=== PATIENT | male | born 1950 | race Caucasian/White ===

== ENCOUNTER 2018-06-21 12:47 | Outpatient (CLI) | payer MEDICARE ==
--- NOTE | 2018-06-21 13:39 | RAD ---
CHEST 2 VIEWS: HISTORY: Dyspnea. COMPARISON: None. FINDINGS: Atherosclerosis of the aorta. Normal cardiac silhouette. The pulmonary vessels and hilum are normal . Costophrenic angles are clear. Lungs are hyperinflated with chronic changes. There is no pneumot horax. There appears to be an old right 7th and 8th rib fracture with callus formation. Indetermina te changes involving the proximal right humerus. There is a mild, indeterminate compression deformit y in the mid thoracic spine at approximately the T6 level. IMPRESSION: 1. Changes involving the right ribs and right humerus, incompletely evaluated. 2. Hyperinflation with chronic changes. POS: SHE[facility]
== END 2018-06-21 12:48 | disposition home or self-care (01) ==
LOC: RAD 12:47
PROVIDERS: ATTEND Internal Medicine Critical Care Medicine
DX: R06.00 Dyspnea, unspecified (principal); R91.8 Other nonspecific abnormal finding of lung field
CPT/HCPCS: 71046